=== PATIENT | female | born 1995 | race Hispanic/Latino ===

== ENCOUNTER 2019-06-06 14:17 | Outpatient (CLI) | payer OTHER ==
--- NOTE | 2019-06-06 15:30 | ULT ---
Complete obstetrical ultrasound INDICATION: Evaluate anatomy TECHNIQUE: Grayscale, M-mode Doppler and Doppler images were obtained of the abdomen and pelvis to ev aluate the patient's known . COMPARISON: None. FINDINGS: Number of gestations: Single. Presentation: Cephalic. Placental location: Anterior Previa: No evidence for previa. Cervical length: 3.4 cm CARLOS: 9.4 cm. heart rate: 147 bpm. Biparietal diameter: 6.13cm, 25 weeks 0 days, Not calculated.. Head circumference: 23.07 cm, 25 weeks 1 day, Not calculated. Abdominal circumference: 21.45 cm, 26 weeks 0 days, Not calculated. Femoral length: 4.50cm, 25 weeks 0 days, Not calculated. Estimated weight: 808 g +/- 118g 1 lb. 12 oz., 28th percentile. SURVEY: head: Normal appearing. Cerebellum: Normal appearing. Cisterna magna: Normal appearing. Lateral ventricles: Normal appearing. 4 chamber heart: Normal appearing.. Stomach: Normal appearing. Kidneys: Normal appearing. Cord insertion: Normal appearing. Bladder: Normal appearing. Spine: Normal appearing. Lips and nose: Normal appearing. Extremities: Normal appearing. Three-vessel CORD: Normal appearing. The average gestational age by ultrasound is 25 weeks and 2 dayswith estimated due date of September 17, 2019. The estimated dates by clinical data is 25 weeks 5 dayswith estimated due date of September 14, 2019. IMPRESSION: 1. Single live intrauterine gestation with size and dates as above.
== END 2019-06-06 14:18 | disposition home or self-care (01) ==
LOC: BICULT 14:17
DX: O09.892 Supervision of other high risk pregnancies, second trimester (principal); Z3A.25 25 weeks gestation of pregnancy
CPT/HCPCS: 76805

== ENCOUNTER 2019-09-12 11:30 | Inpatient (IN) | payer OTHER ==
[~2019-09-12 11:30] MED LIST: Bupivacaine/Epinephrine 0.25% 30 ML VIAL ONE
[2019-09-12 12:21] VITALS: BMI 35.3
[2019-09-12] MEDS ORDERED: hydrALAZINE 20 MG/ML VIAL SLOW IVP PRN ×2 (12:40→15:29)
[2019-09-12] MEDS ORDERED: Ondansetron PF 4 MG/2 ML Vial IVP PRN ×2 (15:29→20:51)
[2019-09-12] MEDS ORDERED: Ibuprofen 800 MG TAB PO PRN (15:29)
[2019-09-12] MEDS ORDERED: NS / Oxytocin 40 units/1000ml 1,000 ML IV PRN (15:29)
[2019-09-12] MEDS ORDERED: Zolpidem Tartrate 5 MG TAB PO PRN (15:29)
[2019-09-12] MEDS ORDERED: Butorphanol Tartrate 1 MG/ML VIAL SLOW IVP PRN (15:29)
[2019-09-12] MEDS ORDERED: Lidocaine 1% (PF) 30 ML VIAL SC PRN (15:29)
[2019-09-12] MEDS ORDERED: Meperidine HCl/PF 25 MG/ML VIAL IM/IV PRN (15:29)
[2019-09-12] MEDS ORDERED: Promethazine HCl 25 MG/ML VIAL IM PRN ×2 (15:29→20:51)
[2019-09-12] MEDS ORDERED: HYDROcodone/Acetaminophen 5/325 mg Tablet PO PRN ×2 (15:29)
[2019-09-12] MEDS ORDERED: Lactated Ringer's 1,000 ML IV SCH (15:30)
[2019-09-12] MEDS ORDERED: NS w/ Oxytocin 10 units 500 ML IV SCH (15:30)
--- NOTE | 2019-09-12 15:33 | PDOC.LDHP ---
Labor and Delivery H&P Chief complaint: contractions HPI: 24 yo LAF presents c/o UCS since this AM. Current gestational age (weeks): 39 Dating criteria: last menstrual period Grav: 2 Para: 1 OB History Details: h/o prev. C/S Dispo by Dr. Graham for TOLAC. Current complications: none Abnormal US findings: No Past Medical History: none Current medications: pre- vitamins, iron Previous surgical history: low tranverse CS Allergies/Adverse Reactions: Allergies Allergy/AdvReac Type Severity Reaction Status Date / Time No Known Allergies Allergy Verified 09/12/19 12:19 Social history: other - Physical Exam Vital signs reviewed and normal: yes General: NAD Heart: RRR Lungs: CTAB Abdomen: gravid Extremeties: trace edema FHT: category 1 Meta contractions every: q 3-5 mins - Vaginal Exam cm dilated: 4 - OB Labs GBS: negative - Assessment L&D Assessment: term rupture in membranes (prev. C/S dispo for TOLAC) - Plan Plan: admit to L&D, informed consent obtained (Dr. Graham notified), anesthesia consult for pain management
[2019-09-12] MEDS: Lactated Ringer's 1,000 ML IV SCH ×2 (15:42→21:38)
[2019-09-12 16:25] LABS: Hemoglobin 12.5 g/dL (12.0-16.0); Mean Corpuscular HGB CONC 32.9 g/dL (32.0-36.0); Mean Corpuscular Hemoglobin 28.4 pg (27.0-31.0); Mean Corpuscular Volume 86.2 fL (78.0-98.0); Mean Platelet Volume 8.4 fL (7.4-10.4); Platelet Count 185 thou/uL (130-400); RBC Distribution Width 13.3 % (11.5-14.5); Red Blood Cell (RBC) Count 4.42 mill/uL (4.20-5.40); White Blood Cell (WBC) Count 11.2 thou/uL (4.8-10.8)
[2019-09-12] MEDS ORDERED: Fentanyl 4 mcg/Bup 0.1% Cadd 100 ML ONE (16:36)
[2019-09-12 17:08] LABS: Syphilis Antibody Nonreactive (Nonreactive); Syphilis Antibody Index 0.05 S/CO (<1.00 Non-Reactive)
[2019-09-12 17:09] LABS: HBSAg Index 0.27 S/CO (0-0.99); Hep B Surf Ag Non-Reactive S/CO (NonReactive)
[2019-09-12] MEDS ORDERED: Lactated Ringer's 500 ML IV PRN (20:51)
[2019-09-12] MEDS ORDERED: Naloxone HCl 0.4 mg/ml Vial IVP PRN ×2 (20:51)
[2019-09-12] MEDS ORDERED: Acetaminophen 325 MG TAB PO PRN (20:51)
[2019-09-12] MEDS ORDERED: diphenhydrAMINE 50 MG/ML VIAL IVP PRN (20:51)
[2019-09-12] MEDS ORDERED: ePHEDrine/0.9% NaCl/PF SYRINGE 50 mg/10 ml SLOW IVP PRN (20:51)
[2019-09-12] MEDS ORDERED: Fentanyl 4 mcg/Bupivacaine 0.1% Cassette 100 ML EPIDURAL SCH (21:00)
[2019-09-12] MEDS ORDERED: Communication Order-Pharmacy FS SCH (21:00)
[2019-09-12] MEDS ORDERED: Lidocaine 1% (PF) 30 ML VIAL ONE (23:11)
[2019-09-12] MEDS ORDERED: NS / Oxytocin 40 units/1000ml 1,000 ML ONE (23:11)
[2019-09-13] MEDS ORDERED: Fentanyl 4 mcg/Bup 0.1% Cadd 100 ML ONE (01:43)
[2019-09-13] MEDS: Lactated Ringer's 1,000 ML IV SCH (05:41)
[2019-09-13] MEDS ORDERED: Adacel (T-DAP) 0.5 ML SYRINGE IM ONE (09:04)
[2019-09-13] MEDS ORDERED: Promethazine HCl 25 MG/ML VIAL IM PRN (09:04)
[2019-09-13] MEDS ORDERED: HYDROcodone/Acetaminophen 5/325 mg Tablet PO PRN ×2 (09:04)
[2019-09-13] MEDS ORDERED: Milk Of Magnesia 30 ML UDCUP PO PRN (09:04)
[2019-09-13] MEDS ORDERED: Preparation H Ointment 28 GM TUBE PR PRN (09:04)
[2019-09-13] MEDS ORDERED: diphenhydrAMINE 25 MG CAP PO PRN (09:04)
[2019-09-13] MEDS ORDERED: hydrALAZINE 20 MG/ML VIAL SLOW IVP PRN (09:04)
[2019-09-13] MEDS ORDERED: Ondansetron PF 4 MG/2 ML Vial IVP PRN (09:04)
[2019-09-13] MEDS ORDERED: Lanolin Ointment 7 GM TUBE TOP PRN (09:04)
[2019-09-13] MEDS ORDERED: Bisacodyl 10 MG SUPP PR PRN (09:04)
[2019-09-13] MEDS ORDERED: NS / Oxytocin 40 units/1000ml 1,000 ML IV SCH (09:04)
[2019-09-13] MEDS: Ferrous Sulfate 325 MG TAB PO SCH (18:39)
[2019-09-13] MEDS: Docusate Calcium (SURFAK) 240 MG CAP PO SCH ×2 (18:39→21:24)
[2019-09-13] MEDS: Prenatal Vitamin 1 TAB PO SCH (18:39)
[2019-09-13] MEDS: Ibuprofen 800 MG TAB PO SCH ×2 (18:39→21:24)
[2019-09-13] MEDS: Benzocaine-Menthol 82.5 ML CAN TOP PRN (21:32)
[2019-09-14] MEDS: Ibuprofen 800 MG TAB PO SCH ×3 (05:02→22:24)
[2019-09-14 06:38] LABS: Mean Corpuscular HGB CONC 33.4 g/dL (32.0-36.0); Mean Corpuscular Hemoglobin 29.6 pg (27.0-31.0); Mean Corpuscular Volume 88.7 fL (78.0-98.0); Mean Platelet Volume 8.3 fL (7.4-10.4); Platelet Count 149 thou/uL (130-400); RBC Distribution Width 13.5 % (11.5-14.5); Red Blood Cell (RBC) Count 3.04 mill/uL (4.20-5.40); White Blood Cell (WBC) Count 11.1 thou/uL (4.8-10.8)
[2019-09-14] MEDS: Prenatal Vitamin 1 TAB PO SCH (08:43)
[2019-09-14] MEDS: Docusate Calcium (SURFAK) 240 MG CAP PO SCH ×2 (08:44→22:24)
[2019-09-14] MEDS: Ferrous Sulfate 325 MG TAB PO SCH ×2 (08:44→16:51)
[2019-09-14] MEDS: Benzocaine-Menthol 82.5 ML CAN TOP PRN (14:07)
[2019-09-15] MEDS: Ibuprofen 800 MG TAB PO SCH ×2 (05:15→14:30)
[2019-09-15] MEDS: Ferrous Sulfate 325 MG TAB PO SCH ×2 (09:21→18:02)
[2019-09-15] MEDS: Docusate Calcium (SURFAK) 240 MG CAP PO SCH (09:21)
[2019-09-15] MEDS: Prenatal Vitamin 1 TAB PO SCH (09:21)
[2019-09-15 09:34] VITALS: BP 112/59; TEMP 98.1
--- NOTE | 2019-09-17 00:45 | PQF ---
[facility] ALEXI Parker MD [id number] CLINICAL DOCUMENTATION CLARIFICATION FORM: POST DISCHARGE Addendum to original discharge summary date: W R O N G D O CT O R !!!!! Late entry note date: __ DATE: 09/17/18 ATTN: Alexi Mclain Please exercise your independent, professional judgment in responding to the clarification form. Clinical indicators are provided on the bottom of this form for your review Please check appropriate box(s): [ ] Acute blood loss anemia [ ] Post-op anemia related to acute blood loss [ ] Chronic Anemia related to preganncy [ ] Other diagnosis [ ] Unable to determine In addition, please specify: Present on Admission (POA): [ ] Yes [ ] No [ ] Unable to determine For continuity of documentation, please document condition throughout progress notes and discharge summary. Thank You. CLINICAL INDICATORS - SIGNS / SYMPTOMS / LABS Laboratory Hematology 09/14/19 RBC 3.04, Hct 9.0, Hct 27.0 PN p3 09/13 EBL 400ml RISK FACTORS H&P p1 1 39 weeks intrauterine PN p3 09/13 s/p PN p3 09/13 s/p Episiotomy TREATMENTS: NOV 08 Ferrous Sulfate (This form is maintained as a part of the permanent medical record) 2014 [employer] All Rights Reserved [email or web address] [not provided] MTDD
--- NOTE | 2019-09-18 17:30 | PQF ---
[facility] BRITTON Nguyen MD [id number] CLINICAL DOCUMENTATION CLARIFICATION FORM: POST DISCHARGE Addendum to original discharge summary date: ____ Late entry note date: __ DATE: 09/18/19 ATTN: Britton Graham Please exercise your independent, professional judgment in responding to the clarification form. Clinical indicators are provided on the bottom of this form for your review Please check appropriate box(s): [ ] Acute blood loss anemia [ ] Post-op anemia related to acute blood loss [ ] Chronic Anemia related to [ ] Other diagnosis [ ] Unable to determine In addition, please specify: Present on Admission (POA): [ ] Yes [ ] No [ ] Unable to determine For continuity of documentation, please document condition throughout progress notes and discharge summary. Thank You. CLINICAL INDICATORS - SIGNS / SYMPTOMS / LABS Laboratory Hematology 09/14/19 RBC 3.04, Hct 9.0, Hct 27.0 PN p3 09/13 EBL 400ml RISK FACTORS H&P p1 1/3 39 weeks intrauterine PN p3 09/13 s/p PN p3 09/13 s/p Episiotomy TREATMENTS: NOV 08 Ferrous Sulfate (This form is maintained as a part of the permanent medical record) 2014 [employer] All Rights Reserved [email or web address] [not provided] MTDD
== END 2019-09-15 18:13 | disposition home or self-care (01) | DRG 807 ==
LOC: L&D/OP 11:30 → L&D 20:14 → 3SW 09-13 18:29
PROVIDERS: ADMIT Obstetrics & Gynecology; ATTEND Obstetrics & Gynecology
PROC: 10E0XZZ Delivery of Products of Conception, External Approach (ICD-10-PCS; principal; 2019-09-13)
PROC: 0W8NXZZ Division of Female Perineum, External Approach (ICD-10-PCS; 2019-09-13)
DX: O34.211 Maternal care for low transverse scar from previous cesarean delivery (principal); Z37.0 Single live birth; Z3A.39 39 weeks gestation of pregnancy; O66.0 Obstructed labor due to shoulder dystocia
CPT/HCPCS: 36415; 51702; 85027; 86780; 86850; 86900; 86901; 87340; 99285; J2001

== ENCOUNTER 2021-08-26 08:30 | Outpatient (CLI) | payer OTHER | END 2021-08-26 08:31 | disposition home or self-care (01) | LOC: BICULT 08:30 | PROVIDERS: ATTEND Family Medicine | DX: O09.92 Supervision of high risk pregnancy, unspecified, second trimester (principal); Z3A.20 20 weeks gestation of pregnancy | CPT/HCPCS: 76805 ==